=== PATIENT | male | born 1960 | race Caucasian/White ===

== ENCOUNTER 2017-11-07 10:24 | Emergency (ER) | payer OTHER ==
[2017-11-07] MEDS ORDERED: 0.9 % SODIUM CHLORIDE 1,000 ML IV ONE (10:55)
[2017-11-07] MEDS ORDERED: KETOROLAC TROMETHAMINE 30 MG/1ML VIAL IVP ONE (10:55)
--- NOTE | 2017-11-07 10:59 | ED Physician Documentation ---
General Adult - HISTORIAN Historian: patient - HPI Stated Complaint: cough,fever,body aches Chief Complaint: General Adult Onset: days ago (Wednesday morning 0500) Further Comments: yes (56 year old male patient presents with complaints of fever, body aches, cough and malaise since Wednesday morning when he awoke around 0500. Patient denies SOB or chest pain.) - ROS CONST: fever, chills EYES/ENT: nasal congestion. denies: sore throat, nasal drainage CVS/RESP: cough. denies: chest pain, shortness of breath GI/: other (poor po intake). denies: vomiting, nausea, diarrhea MS/SKIN/LYMPH: none NEURO/PSYCH: headache. denies: fainting, dizziness, tingling, numbness, difficulty walking, difficulty with speech, anxiety, depression, other - PAST HX Past History: hypertension, other (depression, GERD, HTN) Other History: diabetes Type 2 Allergies/Adverse Reactions: Allergies Allergy/AdvReac Type Severity Reaction Status Date / Time Penicillins Allergy Verified 11/07/17 10:38 Home Medications: Ambulatory Orders Medication Instructions Recorded Citalopram Hydrobromide [CELEXA] 20 mg PO DAILY 04/02/14 Famotidine [Pepcid] 20 mg PO 0700 #10 tablet 04/02/14 Liraglutide [Victoza 3-Marshall] 1.2 ml PO DAILY 04/02/14 Lisinopril [Lisinopril] 20 mg PO DAILY 04/02/14 Metformin HCl [GLUCOPHAGE] 1,000 mg PO BID 04/02/14 Omeprazole [Omeprazole] 20 mg PO DAILY 04/02/14 - SOCIAL HX Smoking History: non-smoker - FAMILY HX Family History: No - VITAL SIGNS Vital Signs: Vital Signs Temp Pulse Resp BP Pulse Ox 98.4 F 108 H 22 113/81 94 11/07/17 10:42 11/07/17 10:42 11/07/17 10:42 11/07/17 10:42 11/07/17 10:42 - REVIEWED ASSESSMENTS Nursing Assessment Reviewed: Yes Vitals Reviewed: Yes Progress - Progress Progress: Patient medicated with IV fluids and toradol while in ER. States he feels much better at discharge. Reviewed discharge instructions, verbalized understanding. ED Results Lab/Radiology - Orders Orders: ED Orders Category Date Time Status Place IV Lock 1T Care 11/07/17 10:55 Ordered INFLUENZA A&B Stat Lab 11/07/17 10:35 Ordered 0.9 % Sodium Chloride [Normal Saline] 1,000 ml Med 11/07/17 10:55 Ordered IV NOW Ketorolac Tromethamine [Toradol] Med 11/07/17 10:55 Once 30 mg IVP NOW ONE General Adult Physical Exam - PHYSICAL EXAM GENERAL APPEARANCE: mild distress (ill appearing patient lying on stretcher) EENT: eye inspection normal, ENT inspection normal, pharynx normal, no signs of dehydration, ONIEL, no nystagmus, TM's nml RESPIRATORY: no resp distress, chest non-tender, breath sounds normal CVS: reg rate & rhythm, heart sounds normal, equal pulses, no murmur, no gallop , PMI nml, no JVD, no friction rub, 24 ABDOMEN: soft, no organomegaly, normal bowel sounds, no abdominal bruit, no distension BACK: normal inspection, no CVA tenderness SKIN: normal color, warm/dry, NR, INT, PAL, DR EXTREMITIES: non-tender, normal range of motion, no evidence of injury, no edema , J, [employer] NEURO: oriented X3, CN's nml as tested, motor nml, sensation nml, mood/affect nml Discharge Clincal Impression: Influenza A Referrals: Primary Doctor,No [Primary Care Provider] - 2 Days Condition: Stable Disposition: 01 HOME, SELF-CARE Decision to Admit: NO Decision Time: 11:40
[2017-11-07 11:52] VITALS: BP 110/74
== END 2017-11-07 11:45 | disposition home or self-care (01) ==
LOC: ED 10:24
DX: J09.X2 Influenza due to identified novel influenza A virus with other respiratory manifestations (principal); I10 Essential (primary) hypertension; E11.9 Type 2 diabetes mellitus without complications
CPT/HCPCS: 87400; 96361; 96374; 99283; J1885; J7030; S1016